=== PATIENT | female | born 1995 | race Caucasian/White ===

== ENCOUNTER 2021-03-20 13:13 | Inpatient (IN) | payer MEDICAID, OTHER ==
[2021-03-20] MEDS ORDERED: SODIUM CHLORIDE 0.9% 1,000 ML IV STA (15:04)
[2021-03-20 15:26] LABS: Basophils # (A) 0.1 k/uL (0-0.2); Basophils % (A) 1 %; Eosinophils # (A) 0.1 k/uL (0-0.7); Eosinophils % (A) 1 %; HCT 29.7 % (34.0-46.0); Hyperchromasia Slight; Lymphocytes # (A) 2.3 k/uL (1.0-4.8); Lymphocytes % (A) 26 %; MCV 91.8 fL (80.0-100.0); Mean Platelet Volume 7.8; Monocytes # (A) 0.4 k/uL (0-1.0); Monocytes % (A) 5 %; Neutrophils # (A) 5.7 k/uL (1.3-7.7); Neutrophils % (A) 66 %; Platelet Count 327 k/uL (150-450); RBC 3.23 m/uL (3.80-5.40); RDW 12.7 % (11.5-15.5); WBC 8.6 k/uL (3.8-10.6)
[2021-03-20 15:39] LABS: ALT 48 U/L (4-34); AST 104 U/L (14-36); African American GFR (CKD) >90 (>60 ml/min/1.73 sqM); Albumin 3.7 g/dL (3.5-5.0); Alkaline Phosphatase 164 U/L (38-126); Anion Gap 14 mmol/L; Blood Urea Nitrogen 16 mg/dL (7-17); Calcium 8.4 mg/dL (8.4-10.2); Carbon Dioxide 18 mmol/L (22-30); Chloride 102 mmol/L (98-107); Glucose 115 mg/dL (74-99); Magnesium 1.3 mg/dL (1.6-2.3); Non-African American GFR(CKD) >90 (>60 ml/min/1.73 sqM); Potassium 4.1 mmol/L (3.5-5.1); Sodium 134 mmol/L (137-145); Total Bilirubin 0.7 mg/dL (0.2-1.3); Total Protein 7.5 g/dL (6.3-8.2)
[2021-03-20] MEDS ORDERED: MORPHINE SULFATE 4 MG/ML SYRINGE IV STA (15:41)
[2021-03-20] MEDS ORDERED: ONDANSETRON 4 MG/2 ML VIAL IVP STA (15:41)
--- NOTE | 2021-03-20 15:41 | ED ---
General Adult HPI - General Chief complaint: Abdominal Pain Stated complaint: Abdominal Pain Time Seen by Provider: 03/20/21 14:56 Source: patient Mode of arrival: ambulatory Limitations: no limitations - History of Present Illness Initial comments: Dictation was produced using [employer] dictation software. please excuse any grammatical, word or spelling errors. Chief Complaint: 25 year old female presents with left-sided flank pain History of Present Illness: Patient is a 25-year-old female she states that she has left-sided flank pain. Symptoms started yesterday. She is accompanied by her who was sitting at the bedside. She states that she has radiating pain that starts in the left flank and radiates down to the left groin. States that it colicky in nature. States is severe but started to get a little bit better. Patient denies she states she has intrauterine device. She does not have a history of kidney stones. She has not looked at her urine in the last 48 hours. She does not know if there is any changes in color. Denies any fever. No dysuria. The ROS documented in this emergency department record has been reviewed and confirmed by me. Those systems with pertinent positive or negative responses have been documented in the HPI. All other systems are other negative and/or noncontributory. PHYSICAL EXAM: General Impression: Alert and oriented x3, not in acute distress HEENT: Normocephalic atraumatic, extra-ocular movements intact, pupils equal and reactive to light bilaterally, mucous membranes moist. Cardiovascular: Heart regular rate and rhythm Chest: Able to complete full sentences, no retractions, no tachypnea Abdomen: abdomen soft, non-tender, non-distended, no organomegaly Musculoskeletal: Pulses present and equal in all extremities, no peripheral edema Motor: no focal deficits noted Neurological: CN II-XII grossly intact, no focal motor or sensory deficits noted Skin: Intact with no visualized rashes Psych: Normal affect and mood ED course: 25-year-old feel presents to the emergency department for 1-2 days of left-sided flank pain. Presentation suspicious for nephrolithiasis. Vital signs upon arrival shows findings within acceptable limits. Evaluation obtained. Hemoglobin is 10.9. This is a 2-1/2 g drop since 2016. Laboratory evaluation obtained. There is mild acidosis with a bicarb of 18. Left acidosis 2.5. Elevated liver enzymes. Beta Quant is negative. The scan of the abdomen and pelvis without contrast shows pancreatitis. Patient treated with fluids and analgesics. According to the lab result her lipase is unable to be reported due to grossly lipemic specimen. A urine sample and repeat lipase sample. Case discussed with Jodie Michelle is willing to accept patients care. Patient reevaluated at bedside at 4:50 PM 5 to be stable medical condition. - Related Data Home Medications Medication Instructions Recorded Confirmed Cetirizine HCl [Zyrtec] 10 mg PO DAILY 03/20/21 03/20/21 Lisdexamfetamine Dimesylate 50 mg PO DAILY 03/20/21 03/20/21 [Vyvanse] Allergies Allergy/AdvReac Type Severity Reaction Status Date / Time No Known Allergies Allergy Verified 03/20/21 15:50 Review of Systems ROS Statement: Those systems with pertinent positive or pertinent negative responses have been documented in the HPI. ROS Other: All systems not noted in ROS Statement are negative. Past Medical History Additional Past Medical History / Comment(s): bulemia History of Any Multi-Drug Resistant Organisms: None Reported Past Surgical History: Tonsillectomy Past Psychological History: Anxiety, Depression Smoking Status: Never smoker Past Alcohol Use History: Occasional Past Drug Use History: Marijuana General Exam Limitations: no limitations Course Vital Signs 03/20/21 13:47 Temperature 97.5 F L Pulse Rate 80 Respiratory 22 Rate Blood Pressure 124/87 O2 Sat by Pulse 99 Oximetry Medical Decision Making - Lab Data Result diagrams: 03/20/21 15:04 03/20/21 15:04 Lab Results 03/20/21 03/20/21 03/20/21 Range/Units 15:04 15:04 15:04 WBC 8.6 (3.8-10.6) k/uL RBC 3.23 L (3.80-5.40) m/uL Hgb 10.9 L (11.4-16.0) gm/dL Hct 29.7 L (34.0-46.0) % MCV 91.8 (80.0-100.0) fL MCH 35.6 H (25.0-35.0) pg MCHC 38.2 H (31.0-37.0) g/dL RDW 12.7 (11.5-15.5) % Plt Count 327 (150-450) k/uL MPV 7.8 Neutrophils % 66 % Lymphocytes % 26 % Monocytes % 5 % Eosinophils % 1 % Basophils % 1 % Neutrophils # 5.7 (1.3-7.7) k/uL Lymphocytes # 2.3 (1.0-4.8) k/uL Monocytes # 0.4 (0-1.0) k/uL Eosinophils # 0.1 (0-0.7) k/uL Basophils # 0.1 (0-0.2) k/uL Hyperchromasia Slight Sodium 134 L (137-145) mmol/L Potassium 4.1 (3.5-5.1) mmol/L Chloride 102 (98-107) mmol/L Carbon Dioxide 18 L (22-30) mmol/L Anion Gap 14 mmol/L BUN 16 (7-17) mg/dL Creatinine 0.53 (0.52-1.04) mg/dL Est GFR (CKD-EPI)AfAm >90 (>60 ml/min/1.73 sqM) Est GFR (CKD-EPI)NonAf >90 (>60 ml/min/1.73 sqM) Glucose 115 H (74-99) mg/dL Plasma Lactic Acid Will 2.5 H* (0.7-2.0) mmol/L Calcium 8.4 (8.4-10.2) mg/dL Magnesium 1.3 L (1.6-2.3) mg/dL Total Bilirubin 0.7 (0.2-1.3) mg/dL AST 104 H (14-36) U/L ALT 48 H (4-34) U/L Alkaline Phosphatase 164 H (38-126) U/L Total Protein 7.5 (6.3-8.2) g/dL Albumin 3.7 (3.5-5.0) g/dL Lipase (23-300) U/L HCG, Quant <2.4 mIU/mL Disposition Clinical Impression: Pancreatitis Disposition: ADMITTED IP TO THIS HOSP Condition: Fair Referrals: Ernesto Morgan MD [Primary Care Provider] - 1-2 days
[2021-03-20 15:42] LABS: HGB 10.9 gm/dL (11.4-16.0); MCH 35.6 pg (25.0-35.0); MCHC 38.2 g/dL (31.0-37.0)
[2021-03-20 16:20] LABS: HCG,Quantitative Serum <2.4 mIU/mL
--- NOTE | 2021-03-20 16:35 | CT ---
EXAMINATION TYPE: CT abdomen pelvis wo con DATE OF EXAM: 03/20/2021 COMPARISON: None HISTORY: Suspected kidney stone, left side abdominal pain CT DLP: 339.9 mGycm Automated exposure control for dose reduction was used. TECHNIQUE: Helical acquisition of images from the lung bases through the pelvis. FINDINGS: Lack of intravenous contrast compromises sensitivity. LUNG BASES: No significant abnormality is appreciated. AORTA: No significant abnormality is appreciated. LIVER/GB: Liver shows low attenuation likely due to hepatic steatosis.. PANCREAS: Pancreas is poorly defined, there is peripancreatic inflammatory change present, fluid pres ent along the left paracolic gutter, lateral conal fascia, Gerota's fascia. SPLEEN: No significant abnormality is seen. ADRENALS: No significant abnormality is seen. KIDNEYS: No significant abnormality is seen. REPRODUCTIVE ORGANS: Intrauterine contraceptive device in place. URINARY BLADDER: No significant abnormality is seen. BOWEL: Luminal high attenuation within the colon likely related to radiodense medication.. FREE AIR: No Free Air is visible. ASCITES: None visible. PELVIC ADENOPATHY: None visualized. RETROPERITONEAL ADENOPATHY: No Retroperitoneal Adenopathy visible. OSSEOUS STRUCTURES: No significant abnormality is seen. IMPRESSION: CORRELATE FOR PANCREATITIS, noncontrast exam
[2021-03-20] MEDS ORDERED: NALOXONE 0.4 MG/ML 1 ML VIAL IV PRN (16:50)
--- NOTE | 2021-03-20 18:05 | US ---
EXAMINATION TYPE: US abdomen limited DATE OF EXAM: 03/20/2021 COMPARISON: Same day CT CLINICAL HISTORY: RUQ. Pain x 1 day EXAM MEASUREMENTS: Liver Length: 18.0 cm Gallbladder Wall: 0.2 cm CBD: 0.4 cm Right Kidney: 11.2 x 4.9 x 4.9 cm Pancreas: Body wnl, head and tail obscured by overlying bowel gas Liver: Upper limits of normal for size, heterogeneous, difficult to penetrate Gallbladder: wnl Evidence for sonographic Gallegos's sign: No CBD: wnl Right Kidney: wnl, lower pole gassed out IMPRESSION: No gallstones or dilated ducts.
[2021-03-20 18:26] LABS: Appearance,Urine Clear (Clear); Bilirubin,Urine Negative (Negative); Blood,Urine Negative (Negative); Color,Urine Light Yellow; Glucose,Urine (UA) Negative (Negative); Ketones,Urine Negative (Negative); Leukocyte Esterase,Urine Negative (Negative); Nitrite,Urine Negative (Negative); PH, Urine 5.5 (5.0-8.0); Protein,Urine Negative (Negative); Specific Gravity,Urine 1.016 (1.001-1.035); Urobilinogen,Urine <2.0 mg/dL (<2.0)
[2021-03-20] MEDS: SODIUM CHLORIDE 0.9% 1,000 ML IV SCH (20:39)
[2021-03-20] MEDS: ONDANSETRON 4 MG/2 ML VIAL IVP PRN (20:49)
[2021-03-20] MEDS: MORPHINE SULFATE 4 MG/ML SYRINGE IV PRN (20:49)
[2021-03-21] MEDS: MORPHINE SULFATE 4 MG/ML SYRINGE IV PRN ×6 (00:56→23:45)
[2021-03-21] MEDS: SODIUM CHLORIDE 0.9% 1,000 ML IV SCH ×2 (03:14→19:13)
[2021-03-21] MEDS: ONDANSETRON 4 MG/2 ML VIAL IVP PRN (06:15)
--- NOTE | 2021-03-21 12:26 | P.GSCN ---
History of Present Illness Consult date: 03/21/21 History of present illness: This is a 25 old female presented with a chief complaint of abdominal pain. She had been out drinking the day previously heavily. She states that she has a glass a wine every day or every other day usually. She states she's usually not a heavy drinker though. She's never had this before in the past. She is found have pancreatitis on computed tomography scan. No signs of gallstones on ultrasound or computed tomography scan. Today she states she's feeling somewhat better though she is still having some abdominal pain. Past Medical History Additional Past Medical History / Comment(s): bulemia History of Any Multi-Drug Resistant Organisms: None Reported Past Surgical History: Tonsillectomy Past Psychological History: Anxiety, Depression Smoking Status: Never smoker Past Alcohol Use History: Occasional Past Drug Use History: Marijuana Medications and Allergies Home Medications Medication Instructions Recorded Confirmed Type Cetirizine HCl [Zyrtec] 10 mg PO DAILY 03/20/21 03/20/21 History Lisdexamfetamine Dimesylate 50 mg PO DAILY 03/20/21 03/20/21 History [Vyvanse] Allergies Allergy/AdvReac Type Severity Reaction Status Date / Time No Known Allergies Allergy Verified 03/20/21 15:50 Surgical - Exam Osteopathic Statement: *. No significant issues noted on an osteopathic structural exam other than those noted in the History and Physical/Consult. Vital Signs Temp Pulse Resp BP Pulse Ox 97.5 F L 80 22 124/87 99 03/20/21 13:47 03/20/21 13:47 03/20/21 13:47 03/20/21 13:47 03/20/21 13:47 - General well developed, well nourished, no distress - Neck trachea midline - Cardiovascular Rhythm: regular - Abdomen Soft nondistended tender to palpation midepigastric no rebound no rigidity no guarding - Psychiatric oriented to time, oriented to person, oriented to place Results - Labs 03/20/21 15:04 03/20/21 15:04 Abnormal Lab Results - Last 24 Hours (Table) 03/20/21 03/20/21 03/20/21 Range/Units 15:04 15:04 15:04 RBC 3.23 L (3.80-5.40) m/uL Hgb 10.9 L (11.4-16.0) gm/dL Hct 29.7 L (34.0-46.0) % MCH 35.6 H (25.0-35.0) pg MCHC 38.2 H (31.0-37.0) g/dL Sodium 134 L (137-145) mmol/L Carbon Dioxide 18 L (22-30) mmol/L Glucose 115 H (74-99) mg/dL Plasma Lactic Acid Will 2.5 H* (0.7-2.0) mmol/L Magnesium 1.3 L (1.6-2.3) mg/dL AST 104 H (14-36) U/L ALT 48 H (4-34) U/L Alkaline Phosphatase 164 H (38-126) U/L Diabetes panel 03/20/21 Range/Units 15:04 Sodium 134 L (137-145) mmol/L Potassium 4.1 (3.5-5.1) mmol/L Chloride 102 (98-107) mmol/L Carbon Dioxide 18 L (22-30) mmol/L BUN 16 (7-17) mg/dL Creatinine 0.53 (0.52-1.04) mg/dL Glucose 115 H (74-99) mg/dL Calcium 8.4 (8.4-10.2) mg/dL AST 104 H (14-36) U/L ALT 48 H (4-34) U/L Alkaline Phosphatase 164 H (38-126) U/L Total Protein 7.5 (6.3-8.2) g/dL Albumin 3.7 (3.5-5.0) g/dL Calcium panel 03/20/21 Range/Units 15:04 Calcium 8.4 (8.4-10.2) mg/dL Albumin 3.7 (3.5-5.0) g/dL Pituitary panel 03/20/21 Range/Units 15:04 Sodium 134 L (137-145) mmol/L Potassium 4.1 (3.5-5.1) mmol/L Chloride 102 (98-107) mmol/L Carbon Dioxide 18 L (22-30) mmol/L BUN 16 (7-17) mg/dL Creatinine 0.53 (0.52-1.04) mg/dL Glucose 115 H (74-99) mg/dL Calcium 8.4 (8.4-10.2) mg/dL Adrenal panel 03/20/21 Range/Units 15:04 Sodium 134 L (137-145) mmol/L Potassium 4.1 (3.5-5.1) mmol/L Chloride 102 (98-107) mmol/L Carbon Dioxide 18 L (22-30) mmol/L BUN 16 (7-17) mg/dL Creatinine 0.53 (0.52-1.04) mg/dL Glucose 115 H (74-99) mg/dL Calcium 8.4 (8.4-10.2) mg/dL Total Bilirubin 0.7 (0.2-1.3) mg/dL AST 104 H (14-36) U/L ALT 48 H (4-34) U/L Alkaline Phosphatase 164 H (38-126) U/L Total Protein 7.5 (6.3-8.2) g/dL Albumin 3.7 (3.5-5.0) g/dL Assessment and Plan Assessment: Alcohol-induced pancreatitis Plan: Patient doesn't have any gallstones or signs of gallstone pancreatitis. This likely secondary to alcohol use the previous day. No plans for any acute surgical intervention fluid resuscitation and when she is feeling better advance diet as tolerated
[2021-03-22] MEDS: SODIUM CHLORIDE 0.9% 1,000 ML IV SCH ×3 (00:29→15:59)
[2021-03-22] MEDS: ACETAMINOPHEN TAB 325 MG TAB PO PRN ×2 (01:49→19:49)
[2021-03-22] MEDS: MORPHINE SULFATE 4 MG/ML SYRINGE IV PRN ×4 (03:51→15:59)
--- NOTE | 2021-03-22 07:54 | P.HPIM ---
History of Present Illness H&P Date: 03/21/21 Chief Complaint: Abdominal Pain 25 old female, with history of bulimia and seasonal ALLERGIES, presented with a chief complaint of abdominal pain which started 1-2 days prior to coming to ED. She had been out drinking the day previously heavily. She states that she has a glass a wine every day or every other day usually. She states she's usually not a heavy drinker though. She's never had this before in the past. Blood work completed in ED reveals WBC 8.6, hemoglobin 10.9, platelet count 327, sodium 134, potassium 4.1, BUN/creatinine of 16/0.53; lactic acid of 2.5, AST/ALT elevated at 104/48; lipase could not be done due to specimen being grossly lipemic. CT of abdomen pelvis is suspicious for acute pancreatitis; abdominal ultrasound is negative for gallstones or dilated bile duct Review of Systems REVIEW OF SYSTEMS: CONSTITUTIONAL: No fever, no malaise, no fatigue. HEENT: No recent visual problems or hearing problems. Denied any sore throat. CARDIOVASCULAR: No chest pain, orthopnea, PND, no palpitations, no syncope. PULMONARY: No shortness of breath, no cough, no hemoptysis. GASTROINTESTINAL: abdominal pain. NEUROLOGICAL: No headaches, no weakness, no numbness. HEMATOLOGICAL: Denies any bleeding or petechiae. GENITOURINARY: Denies any burning micturition, frequency, or urgency. MUSCULOSKELETAL/RHEUMATOLOGICAL: Denies any joint pain, swelling, or any muscle pain. ENDOCRINE: Denies any polyuria or polydipsia. The rest of the 14-point review of systems is negative. Past Medical History Additional Past Medical History / Comment(s): bulemia History of Any Multi-Drug Resistant Organisms: None Reported Past Surgical History: Tonsillectomy Past Psychological History: Anxiety, Depression Smoking Status: Never smoker Past Alcohol Use History: Occasional Past Drug Use History: Marijuana Medications and Allergies Home Medications Medication Instructions Recorded Confirmed Type Cetirizine HCl [Zyrtec] 10 mg PO DAILY 03/20/21 03/20/21 History Lisdexamfetamine Dimesylate 50 mg PO DAILY 03/20/21 03/20/21 History [Vyvanse] Allergies Allergy/AdvReac Type Severity Reaction Status Date / Time No Known Allergies Allergy Verified 03/20/21 15:50 Physical Exam Vitals: Vital Signs Temp Pulse Pulse Resp BP BP Pulse Ox 03/21/21 07:00 99.2 F 105 H 18 94/60 99 03/21/21 01:53 99.0 F 107 H 16 106/67 03/20/21 20:38 98.7 F 96 18 124/86 100 03/20/21 13:47 97.5 F L 80 22 124/87 99 Intake and Output 03/20/21 03/21/21 03/21/21 22:59 06:59 14:59 Other: Voiding Method Toilet Toilet Toilet # Voids 0 2 Weight 54.431 kg PHYSICAL EXAMINATION: GENERAL: The patient is alert and oriented x3, not in any acute distress. Well developed, well nourished. HEENT: Pupils are round and equally reacting to light. EOMI. No scleral icterus. No conjunctival pallor. Normocephalic, atraumatic. No pharyngeal erythema. No thyromegaly. CARDIOVASCULAR: S1 and S2 present. No murmurs, rubs, or gallops. PULMONARY: Chest is clear to auscultation, no wheezing or crackles. ABDOMEN: Soft, diffuse tenderness is more so in epigastric area without any g uarding or rigidity. Bowel sounds are positive MUSCULOSKELETAL: No joint swelling or deformity. EXTREMITIES: No cyanosis, clubbing, or pedal edema. NEUROLOGICAL: Gross neurological examination did not reveal any focal deficits. SKIN: No rashes. Results CBC & Chem 7: 03/20/21 15:04 03/20/21 15:04 Labs: Abnormal Lab Results - Last 24 Hours (Table) 03/20/21 03/20/21 03/20/21 Range/Units 15:04 15:04 15:04 RBC 3.23 L (3.80-5.40) m/uL Hgb 10.9 L (11.4-16.0) gm/dL Hct 29.7 L (34.0-46.0) % MCH 35.6 H (25.0-35.0) pg MCHC 38.2 H (31.0-37.0) g/dL Sodium 134 L (137-145) mmol/L Carbon Dioxide 18 L (22-30) mmol/L Glucose 115 H (74-99) mg/dL Plasma Lactic Acid Will 2.5 H* (0.7-2.0) mmol/L Magnesium 1.3 L (1.6-2.3) mg/dL AST 104 H (14-36) U/L ALT 48 H (4-34) U/L Alkaline Phosphatase 164 H (38-126) U/L Assessment and Plan Assessment: 1. Acute alcoholic pancreatitis - IV fluids in form of normal saline at a rate of 1 25 mL an hour; keep patient nothing by mouth till evaluated by general surgery - Pain controlled with morphine 4 mg IV every 4 hours when necessary; Zofran 4 mg IV every 6 hours when necessary for nausea and vomiting 2. Lactic acidosis; possibly related to EtOH use versus acute pancreatitis; we will monitor lipase closely and continue with IV fluid hydration 3. Transaminitis; possibly related to EtOH use; we will monitor liver enzymes closely with further recommendations pending results 4. History of bulimia; resume home dose of Vyvanse 50 mg daily once clinically improved 5. Seasonal ALLERGIES; patient takes Zyrtec 10 mg daily at home DVT prophylaxis; SCDs CODE STATUS; full code
[2021-03-22 09:26] LABS: HCT 31.2 % (37.2-46.3); HGB 11.1 g/dL (12.0-15.0); MCH 34.8 pg (27.0-32.0); MCHC 35.6 g/dL (32.0-37.0); MCV 97.8 fL (80.0-97.0); Mean Platelet Volume 11.4 fL (9.5-12.2); Platelet Count 222 X 10*3/uL (140-440); RBC 3.19 X 10*6/uL (4.10-5.20); RDW 12.6 % (11.5-14.5); WBC 15.82 X 10*3/uL (4.50-10.00)
[2021-03-22 10:17] LABS: Basophils # (A) 0.11 X 10*3/uL (0.00-0.10); Basophils % (A) 0.7 %; Eosinophils # (A) 0.24 X 10*3/uL (0.04-0.35); Eosinophils % (A) 1.5 %; Lymphocytes # (A) 1.51 X 10*3/uL (0.90-5.00); Lymphocytes % (A) 9.5 %; Monocytes # (A) 0.58 X 10*3/uL (0.20-1.00); Monocytes % (A) 3.7 %; Neutrophils # (A) 13.26 X 10*3/uL (1.80-7.70); Neutrophils % (A) 83.8 %
[2021-03-22 10:38] LABS: African American GFR (CKD) 166.6 (60.0-200.0); Blood Urea Nitrogen 2.8 mg/dL (9.0-27.0); Non-African American GFR(CKD) 143.7 (60.0-200.0)
[2021-03-22 11:23] LABS: Albumin 2.7 g/dL (3.8-4.9); Albumin/Globulin Ratio 1.44 (1.60-3.17); Anion Gap 11.4 mmol/L (10.00-18.00); Bilirubin, Conjugated 0.21 mg/dL (0.20-0.40); Bilirubin,Unconjugated 0.22 mg/dL (0.20-1.00); Calcium 5.7 mg/dL (8.7-10.3); Carbon Dioxide 18.6 mmol/L (20.0-27.5); Globulin 1.9 g/dL (1.6-3.3); Potassium 3.6 mmol/L (3.5-5.5); Total Bilirubin 0.4 mg/dL (0.30-1.20); Total Protein 4.6 g/dL (6.2-8.2)
[2021-03-22] MEDS: ONDANSETRON 4 MG/2 ML VIAL IVP PRN ×2 (12:02→17:56)
[2021-03-22 14:34] LABS: Ionized Calcium 3.8 mg/dL (4.5-5.3)
[2021-03-22 14:46] LABS: C Reactive Protein 7.8 mg/dL (<1.0); Magnesium 1.4 mg/dL (1.6-2.3)
[2021-03-22 15:38] LABS: Appearance,Urine Clear (Clear); Bilirubin,Urine Negative (Negative); Blood,Urine Negative (Negative); Color,Urine Yellow; Glucose,Urine (UA) Negative (Negative); Ketones,Urine Trace (Negative); Leukocyte Esterase,Urine Negative (Negative); Nitrite,Urine Negative (Negative); Protein,Urine Trace (Negative); Specific Gravity,Urine 1.007 (1.001-1.035); Urobilinogen,Urine <2.0 mg/dL (<2.0)
--- NOTE | 2021-03-22 15:38 | XR ---
EXAMINATION TYPE: XR chest 2V DATE OF EXAM: 03/22/2021 COMPARISON: NONE HISTORY: Pancreatitis. Leukocytosis. TECHNIQUE: 2 views FINDINGS: There is some infiltrate in the left lower lobe. There is bilateral blunting of the costoph renic angles. There is no obvious heart failure. Heart size is probably normal. IMPRESSION: There is bilateral pleural effusions with basilar pulmonary infiltrates. No heart failure seen.
[2021-03-22] MEDS: PIPERACILLIN-TAZOBACTAM 3.375 GM in SODIUM CHLORIDE 0.9% 100 ML IVPB SCH ×2 (15:59→23:19)
--- NOTE | 2021-03-22 20:43 | P.PN ---
Subjective Progress Note Date: 03/22/21 Principal diagnosis: Acute appendicitis Leukocytosis/lactic acidosis Hypocalcemia/hypomagnesemia Bibasilar pneumonia/bilateral pleural effusion 25 old female, with history of bulimia and seasonal ALLERGIES, presented with a chief complaint of abdominal pain which started 1-2 days prior to coming to ED. She had been out drinking the day previously heavily. She states that she has a glass a wine every day or every other day usually. She states she's usually not a heavy drinker though. She's never had this before in the past. Blood work completed in ED reveals WBC 8.6, hemoglobin 10.9, platelet count 327, sodium 134, potassium 4.1, BUN/creatinine of 16/0.53; lactic acid of 2.5, AST/ALT elevated at 104/48; lipase could not be done due to specimen being grossly lipemic. CT of abdomen pelvis is suspicious for acute pancreatitis; abdominal ultrasound is negative for gallstones or dilated bile duct 03/22/2021 Patient is seen and evaluated in room at bedside; report some improvement in abdominal pain; currently on clear liquid diet Vital signs temperature 98.2 pulse 114 respirations 16 blood pressure of 96/53 Lab review shows a persistently elevated white blood count of 15.8 to, sodium 1:30, BUN/creatinine of 2.8/0.4, lipase elevated at 640, CRP of 7.8, AST/ALT slowly trending down, ionized calcium level of 3.8 Due to persistent leukocytosis sepsis workup was initiated and reveals chest x- ray positive for bibasilar pneumonia and pleural effusion We will start patient on IV Rocephin and azithromycin with plans to de-escalate antibiotic therapy fairly quickly pending clinical response; ID is consulted Objective - Vital Signs Vital signs: Vital Signs Temp 99.2 F 03/22/21 19:42 Pulse 114 H 03/22/21 19:44 Resp 16 03/22/21 19:42 BP 96/53 03/22/21 19:42 Pulse Ox 96 03/22/21 19:42 Intake & Output 03/22/21 03/22/21 03/23/21 06:59 18:59 06:59 Intake Total 500 Balance 500 Intake: Oral 500 Other: Voiding Method Toilet Toilet # Voids 1 2 - Exam PHYSICAL EXAMINATION: GENERAL: The patient is alert and oriented x3, not in any acute distress. Well developed, well nourished. HEENT: Pupils are round and equally reacting to light. EOMI. No scleral icterus. No conjunctival pallor. Normocephalic, atraumatic. No pharyngeal erythema. No thyromegaly. CARDIOVASCULAR: S1 and S2 present. No murmurs, rubs, or gallops. PULMONARY: Chest is clear to auscultation, no wheezing or crackles. ABDOMEN: Soft, nontender, nondistended, normoactive bowel sounds. No palpable organomegaly. MUSCULOSKELETAL: No joint swelling or deformity. EXTREMITIES: No cyanosis, clubbing, or pedal edema. NEUROLOGICAL: Gross neurological examination did not reveal any focal deficits. SKIN: No rashes. - Labs CBC & Chem 7: 03/22/21 05:50 03/22/21 05:50 Labs: Abnormal Lab Results - Last 24 Hours (Table) 03/22/21 03/22/21 03/22/21 Range/Units 05:50 05:50 14:13 WBC 15.82 H (4.50-10.00) X 10*3/uL RBC 3.19 L (4.10-5.20) X 10*6/uL Hgb 11.1 L (12.0-15.0) g/dL Hct 31.2 L (37.2-46.3) % MCV 97.8 H (80.0-97.0) fL MCH 34.8 H (27.0-32.0) pg Immature Gran # 0.12 H (0.00-0.04) X 10*3/uL Neutrophils # 13.26 H (1.80-7.70) X 10*3/uL Basophils # 0.11 H (0.00-0.10) X 10*3/uL Sodium 130 L (135-145) mmol/L Carbon Dioxide 18.6 L (20.0-27.5) mmol/L BUN 2.8 L (9.0-27.0) mg/dL Creatinine 0.4 L (0.6-1.5) mg/dL BUN/Creatinine Ratio 7.00 L (12.00-20.00) Ratio Calcium 5.7 L* (8.7-10.3) mg/dL Ionized Calcium Danelle 3.8 L (4.5-5.3) mg/dL Magnesium 1.4 L (1.6-2.3) mg/dL AST 51 H (13-35) U/L C-Reactive Protein 7.8 H (<1.0) mg/dL Total Protein 4.6 L (6.2-8.2) g/dL Albumin 2.7 L (3.8-4.9) g/dL Albumin/Globulin Ratio 1.44 L (1.60-3.17) g/dL Lipase 640 H (14-63) U/L Urine Protein (Negative) Urine Ketones (Negative) 03/22/21 Range/Units 15:30 WBC (4.50-10.00) X 10*3/uL RBC (4.10-5.20) X 10*6/uL Hgb (12.0-15.0) g/dL Hct (37.2-46.3) % MCV (80.0-97.0) fL MCH (27.0-32.0) pg Immature Gran # (0.00-0.04) X 10*3/uL Neutrophils # (1.80-7.70) X 10*3/uL Basophils # (0.00-0.10) X 10*3/uL Sodium (135-145) mmol/L Carbon Dioxide (20.0-27.5) mmol/L BUN (9.0-27.0) mg/dL Creatinine (0.6-1.5) mg/dL BUN/Creatinine Ratio (12.00-20.00) Ratio Calcium (8.7-10.3) mg/dL Ionized Calcium Danelle (4.5-5.3) mg/dL Magnesium (1.6-2.3) mg/dL AST (13-35) U/L C-Reactive Protein (<1.0) mg/dL Total Protein (6.2-8.2) g/dL Albumin (3.8-4.9) g/dL Albumin/Globulin Ratio (1.60-3.17) g/dL Lipase (14-63) U/L Urine Protein Trace H (Negative) Urine Ketones Trace H (Negative) Assessment and Plan Assessment: 1. Acute alcoholic pancreatitis - IV fluids in form of normal saline at a rate of 1 25 mL an hour; keep patient nothing by mouth till evaluated by general surgery - Pain controlled with morphine 4 mg IV every 4 hours when necessary; Zofran 4 mg IV every 6 hours when necessary for nausea and vomiting 2. Lactic acidosis; possibly related to EtOH use versus acute pancreatitis; we will monitor lipase closely and continue with IV fluid hydration 3. Transaminitis; possibly related to EtOH use; we will monitor liver enzymes closely with further recommendations pending results 4. History of bulimia; resume home dose of Vyvanse 50 mg daily once clinically improved 5. Seasonal ALLERGIES; patient takes Zyrtec 10 mg daily at home DVT prophylaxis; SCDs CODE STATUS; full code
[2021-03-22] MEDS ORDERED: CALCIUM GLUCONATE 2 GM in SODIUM CHLORIDE 0.9% 100 ML IVPB ONE (20:45)
[2021-03-22 21:04] LABS: Basophils % (A) 0 %; Eosinophils # (A) 0.3 k/uL (0-0.7); Eosinophils % (A) 2 %; HCT 26.1 % (34.0-46.0); Lymphocytes # (A) 1.7 k/uL (1.0-4.8); Lymphocytes % (A) 13 %; MCH 34.3 pg (25.0-35.0); MCHC 36.1 g/dL (31.0-37.0); MCV 94.9 fL (80.0-100.0); Mean Platelet Volume 9.2; Monocytes # (A) 0.4 k/uL (0-1.0); Monocytes % (A) 3 %; Neutrophils # (A) 10.1 k/uL (1.3-7.7); Neutrophils % (A) 81 %; Platelet Count 178 k/uL (150-450); RBC 2.75 m/uL (3.80-5.40); RDW 12.6 % (11.5-15.5); WBC 12.5 k/uL (3.8-10.6)
[2021-03-22] MEDS: AZITHROMYCIN 250 MG TAB PO SCH (21:04)
[2021-03-22 21:08] LABS: HGB 9.4 gm/dL (11.4-16.0)
[2021-03-23] MEDS: MORPHINE SULFATE 4 MG/ML SYRINGE IV PRN ×4 (01:46→21:11)
[2021-03-23] MEDS: SODIUM CHLORIDE 0.9% 1,000 ML IV SCH ×3 (01:47→22:21)
[2021-03-23 05:18] LABS: Basophils % (A) 0 %; Eosinophils # (A) 0.2 k/uL (0-0.7); Eosinophils % (A) 2 %; HCT 24.5 % (34.0-46.0); HGB 8.7 gm/dL (11.4-16.0); Lymphocytes # (A) 1.2 k/uL (1.0-4.8); Lymphocytes % (A) 11 %; MCH 34.2 pg (25.0-35.0); MCHC 35.4 g/dL (31.0-37.0); MCV 96.5 fL (80.0-100.0); Mean Platelet Volume 8.7; Monocytes # (A) 0.4 k/uL (0-1.0); Monocytes % (A) 4 %; Neutrophils # (A) 8.7 k/uL (1.3-7.7); Neutrophils % (A) 83 %; Platelet Count 174 k/uL (150-450); RBC 2.54 m/uL (3.80-5.40); RDW 12.8 % (11.5-15.5); WBC 10.6 k/uL (3.8-10.6)
[2021-03-23 06:10] LABS: African American GFR (CKD) >90 (>60 ml/min/1.73 sqM); Anion Gap 5 mmol/L; Blood Urea Nitrogen <2 mg/dL (7-17); Calcium 7.3 mg/dL (8.4-10.2); Carbon Dioxide 23 mmol/L (22-30); Chloride 104 mmol/L (98-107); Glucose 97 mg/dL (74-99); Magnesium 1.6 mg/dL (1.6-2.3); Non-African American GFR(CKD) >90 (>60 ml/min/1.73 sqM); Potassium 3.4 mmol/L (3.5-5.1); Sodium 132 mmol/L (137-145)
[2021-03-23 06:45] LABS: C Reactive Protein 14.3 mg/dL (<1.0)
--- NOTE | 2021-03-23 08:20 | P.PN ---
Subjective Principal diagnosis: Pancreatitis The patient is here essentially because of significant alcohol pancreatitis. The patient still feels slight pain 45 out of 10. Tolerating liquid diet but the patient states no improved appetite pain is still nominal Objective - Vital Signs Vital signs: Vital Signs Temp 98.5 F 03/23/21 00:03 Pulse 112 H 03/23/21 00:04 Resp 18 03/23/21 00:03 BP 109/71 03/23/21 00:03 Pulse Ox 95 03/23/21 00:03 Intake & Output 03/22/21 03/23/21 03/23/21 18:59 06:59 18:59 Intake Total 1000 Balance 1000 Intake: Oral 1000 Other: Voiding Method Toilet # Voids 2 1 - Constitutional General appearance: Present: average body habitus - EENT Eyes: Absent: abnormal pupil - Neck Neck: Absent: lymphadenopathy - Respiratory Respiratory: bilateral: CTA - Cardiovascular Rhythm: regular Heart sounds: normal: S1, S2 Abnormal Heart Sounds: Absent: S3 Gallop - Gastrointestinal General gastrointestinal: Present: decreased bowel sounds, distended - Labs CBC & Chem 7: 03/23/21 04:33 03/23/21 04:33 Labs: Abnormal Lab Results - Last 24 Hours (Table) 03/22/21 03/22/21 03/22/21 Range/Units 05:50 05:50 14:13 WBC 15.82 H (4.50-10.00) X 10*3/uL RBC 3.19 L (4.10-5.20) X 10*6/uL Hgb 11.1 L (12.0-15.0) g/dL Hct 31.2 L (37.2-46.3) % MCV 97.8 H (80.0-97.0) fL MCH 34.8 H (27.0-32.0) pg Immature Gran # 0.12 H (0.00-0.04) X 10*3/uL Neutrophils # 13.26 H (1.80-7.70) X 10*3/uL Basophils # 0.11 H (0.00-0.10) X 10*3/uL Sodium 130 L (135-145) mmol/L Potassium (3.5-5.1) mmol/L Carbon Dioxide 18.6 L (20.0-27.5) mmol/L BUN 2.8 L (9.0-27.0) mg/dL Creatinine 0.4 L (0.6-1.5) mg/dL BUN/Creatinine Ratio 7.00 L (12.00-20.00) Ratio Calcium 5.7 L* (8.7-10.3) mg/dL Ionized Calcium Danelle 3.8 L (4.5-5.3) mg/dL Magnesium 1.4 L (1.6-2.3) mg/dL AST 51 H (13-35) U/L C-Reactive Protein 7.8 H (<1.0) mg/dL Total Protein 4.6 L (6.2-8.2) g/dL Albumin 2.7 L (3.8-4.9) g/dL Albumin/Globulin Ratio 1.44 L (1.60-3.17) g/dL Lipase 640 H (14-63) U/L Urine Protein (Negative) Urine Ketones (Negative) 03/22/21 03/22/21 03/23/21 Range/Units 15:30 20:53 04:33 WBC 12.5 H (4.50-10.00) X 10*3/uL RBC 2.75 L 2.54 L (4.10-5.20) X 10*6/uL Hgb 9.4 L D 8.7 L (12.0-15.0) g/dL Hct 26.1 L 24.5 L (37.2-46.3) % MCV (80.0-97.0) fL MCH (27.0-32.0) pg Immature Gran # (0.00-0.04) X 10*3/uL Neutrophils # 10.1 H 8.7 H (1.80-7.70) X 10*3/uL Basophils # (0.00-0.10) X 10*3/uL Sodium (135-145) mmol/L Potassium (3.5-5.1) mmol/L Carbon Dioxide (20.0-27.5) mmol/L BUN (9.0-27.0) mg/dL Creatinine (0.6-1.5) mg/dL BUN/Creatinine Ratio (12.00-20.00) Ratio Calcium (8.7-10.3) mg/dL Ionized Calcium Danelle (4.5-5.3) mg/dL Magnesium (1.6-2.3) mg/dL AST (13-35) U/L C-Reactive Protein (<1.0) mg/dL Total Protein (6.2-8.2) g/dL Albumin (3.8-4.9) g/dL Albumin/Globulin Ratio (1.60-3.17) g/dL Lipase (14-63) U/L Urine Protein Trace H (Negative) Urine Ketones Trace H (Negative) 03/23/21 Range/Units 04:33 WBC (4.50-10.00) X 10*3/uL RBC (4.10-5.20) X 10*6/uL Hgb (12.0-15.0) g/dL Hct (37.2-46.3) % MCV (80.0-97.0) fL MCH (27.0-32.0) pg Immature Gran # (0.00-0.04) X 10*3/uL Neutrophils # (1.80-7.70) X 10*3/uL Basophils # (0.00-0.10) X 10*3/uL Sodium 132 L (135-145) mmol/L Potassium 3.4 L (3.5-5.1) mmol/L Carbon Dioxide (20.0-27.5) mmol/L BUN <2 L (9.0-27.0) mg/dL Creatinine 0.49 L (0.6-1.5) mg/dL BUN/Creatinine Ratio (12.00-20.00) Ratio Calcium 7.3 L (8.7-10.3) mg/dL Ionized Calcium Danelle (4.5-5.3) mg/dL Magnesium (1.6-2.3) mg/dL AST (13-35) U/L C-Reactive Protein 14.3 H (<1.0) mg/dL Total Protein (6.2-8.2) g/dL Albumin (3.8-4.9) g/dL Albumin/Globulin Ratio (1.60-3.17) g/dL Lipase (14-63) U/L Urine Protein (Negative) Urine Ketones (Negative) Assessment and Plan (1) Pancreatitis Current Visit: Yes Status: Acute Code(s): K85.90 - ACUTE PANCREATITIS W ITHOUT NECROSIS OR INFECTION, UNSP SNOMED Code(s): 09564450 Plan: Continue clear liquids. Check CBC CMP with amylase and lipase. Following anemia closely. See orders otherwise. Appreciate surgical consult
[2021-03-23] MEDS: PIPERACILLIN-TAZOBACTAM 3.375 GM in SODIUM CHLORIDE 0.9% 100 ML IVPB SCH ×2 (08:34→16:09)
[2021-03-23] MEDS: AZITHROMYCIN 250 MG TAB PO SCH (08:43)
--- NOTE | 2021-03-23 09:18 | P.CONS ---
History of Present Illness - Reason for Consult Consult date: 03/22/21 fever and leukocytosis Requesting physician: Carl Olsen - Chief Complaint abd pain x few days - History of Present Illness History of present illness : Patient is 25-year-old female presenting to the ER on the for evaluation of left-sided abdominal pain patient symptoms started the day before presentation to the hospital patient describing the pain to be more of a sharp to at times quality intensity is almost entertained by the time he presented to hospital patient has been nauseated and episode of vomiting no diarrhea patient on presentation to the hospital was afebrile however she did spike a low-grade fever 100.03 degrees Fahrenheit after midnight today patient slightly tachycardic patient did have a normal white count on admission however is up to 15.82 today urine has been negative patient did have a CT of abdominal pelvis correlate for pancreatitis patient did have a abdominal ultrasound no gallstones or dilated duct patient was treated conservatively however with the development of a fever and white count jumping up the patient was started on Zosyn infectious disease was consulted for further management of antibiotic therapy, patient did have a history of drinking and apparently may have drank a little bit more on Thanksgiving dinner before the patient symptoms started Review of system: CONSTITUTIONAL: Positive for weakness along with the fever. EYES: No complaint. ENT: No complaint. RESPIRATORY: No complaint. CARDIOVASCULAR: No complaint. GENITOURINARY: No complaint. GASTROINTESTINAL as per history of present illness. MUSCULOSKELETAL: No complaint. INTEGUMENTARY: No complaint. PSYCHOLOGIC: No complaint. ENDOCRINE: No complaint. NEUROLOGIC: No complaint. Past medical history : Reviewed, documented below Past surgical history : Reviewed, documented below Social history: Reviewed, documented below Medications: Reviewed, as documented below EXAMINATION: Vital sigans= Reviewed and documented below GENERAL DESCRIPTION: Middle-aged female lying in bed, no distress. No tachypnea or accessory muscle of respiration use. HEENT: Shows Pallor , no scleral icterus. Oral mucous membrane is dry. NECK: Trachea central, no thyromegaly. LUNGS: Unlabored breathing. Clear to auscultation anteriorly. No wheeze or crackle. HEART: S1, S2, regular rate and rhythm. ABDOMEN: Soft, mild epigastric tenderness , guarding or rigidity EXTREMITIES: No edema of feet. SKIN: No rash, no masses palpable. NEUROLOGICAL: The patient is awake, alert, oriented x3, mood and affect normal. LABS AND RADIOLOGY: Reviewed results see below Assessment : Patient with with a low-grade fever and elevated white count is more likely related to the acute pancreatitis which could be related to alcoholism in this patient CT as well as ultrasound was negative for any gallstones or dilated duct and the patient currently do not have any other obvious focus of infection Plan: 1-agree with Zosyn to cover for the gram-negative abdominal pathogen 2-blood cultures will be followed 3-gentle IV fluid and n.p.o. status We will follow on clinical condition and cultures to further adjust medication if needed Thank you for this consultation we will follow the patient along with you Past Medical History Additional Past Medical History / Comment(s): bulemia History of Any Multi-Drug Resistant Organisms: None Reported Past Surgical History: Tonsillectomy Past Psychological History: Anxiety, Depression Smoking Status: Never smoker Past Alcohol Use History: Occasional Past Drug Use History: Marijuana Medications and Allergies Home Medications Medication Instructions Recorded Confirmed Type Cetirizine HCl [Zyrtec] 10 mg PO DAILY 03/20/21 03/20/21 History Lisdexamfetamine Dimesylate 50 mg PO DAILY 03/20/21 03/20/21 History [Vyvanse] Allergies Allergy/AdvReac Type Severity Reaction Status Date / Time No Known Allergies Allergy Verified 03/20/21 15:50 Physical Exam Vitals: Vital Signs Temp Pulse Resp BP Pulse Ox 03/22/21 08:42 98.3 F 117 H 16 99/69 96 03/22/21 01:18 100.3 F H 119 H 18 96/66 96 03/21/21 18:55 99.2 F 122 H 103/67 97 03/21/21 15:00 99.0 F 109 H 16 92/61 96 Intake and Output 03/21/21 03/22/21 03/22/21 22:59 06:59 14:59 Intake Total 118 Balance 118 Intake: Oral 118 Other: Voiding Method Toilet Toilet # Voids 1 1 Results CBC & Chem 7: 03/23/21 04:33 03/23/21 04:33 Labs: Abnormal Lab Results - Last 24 Hours (Table) 03/22/21 03/22/21 Range/Units 05:50 05:50 WBC 15.82 H (4.50-10.00) X 10*3/uL RBC 3.19 L (4.10-5.20) X 10*6/uL Hgb 11.1 L (12.0-15.0) g/dL Hct 31.2 L (37.2-46.3) % MCV 97.8 H (80.0-97.0) fL MCH 34.8 H (27.0-32.0) pg Immature Gran # 0.12 H (0.00-0.04) X 10*3/uL Neutrophils # 13.26 H (1.80-7.70) X 10*3/uL Basophils # 0.11 H (0.00-0.10) X 10*3/uL Sodium 130 L (135-145) mmol/L Carbon Dioxide 18.6 L (20.0-27.5) mmol/L BUN 2.8 L (9.0-27.0) mg/dL Creatinine 0.4 L (0.6-1.5) mg/dL BUN/Creatinine Ratio 7.00 L (12.00-20.00) Ratio Calcium 5.7 L* (8.7-10.3) mg/dL AST 51 H (13-35) U/L Total Protein 4.6 L (6.2-8.2) g/dL Albumin 2.7 L (3.8-4.9) g/dL Albumin/Globulin Ratio 1.44 L (1.60-3.17) g/dL Lipase 640 H (14-63) U/L
[2021-03-23] MEDS: ACETAMINOPHEN TAB 325 MG TAB PO PRN (13:44)
[2021-03-24] MEDS: PIPERACILLIN-TAZOBACTAM 3.375 GM in SODIUM CHLORIDE 0.9% 100 ML IVPB SCH ×2 (00:17→08:23)
[2021-03-24] MEDS: MORPHINE SULFATE 4 MG/ML SYRINGE IV PRN (01:17)
[2021-03-24 01:35] VITALS: RESP 16
[2021-03-24] MEDS: SODIUM CHLORIDE 0.9% 1,000 ML IV SCH (05:14)
--- NOTE | 2021-03-24 06:18 | PN ---
PROGRESS NOTE DATE OF SERVICE: 03/23/2021 REASON FOR FOLLOWUP: Fever and leukocytosis likely secondary to alcoholism. INTERVAL HISTORY: Patient is afebrile. The patient abdominal pain has decreased in intensity. Denies having any chest pain, shortness of breath or cough. PHYSICAL EXAMINATION: Blood pressure 113/79, pulse of 102. Temperature 98.8, she is 100% on room air. General description is a middle-aged female lying in bed in no distress. Respiratory system: Unlabored breathing, decreased intensity in breath sounds in the base, with no wheeze. Heart S1, S2. Regular rate and rhythm. Abdomen soft, no tenderness. No guarding. No rigidity. LAB: Hemoglobin 8.7, white count 10.6, creatinine 0.49. DIAGNOSTIC IMPRESSION AND PLAN: Patient with fever with elevated white count admitted to the hospital with acute pancreatitis The patient's fever responded to the Zosyn to continue. Hopefully transition to oral antibiotic once her oral intake improves. Continue supportive care. MMODL / IJN: [id number] /
[2021-03-24 07:38] VITALS: BP 118/84; PULSE 104; TEMP 98.8
[2021-03-24] MEDS: AZITHROMYCIN 250 MG TAB PO SCH (08:23)
[2021-03-24] MEDS: ACETAMINOPHEN TAB 325 MG TAB PO PRN (08:29)
[2021-03-24 09:11] LABS: HCT 22.4 % (37.2-46.3); HGB 7.3 g/dL (12.0-15.0); MCH 32.6 pg (27.0-32.0); MCHC 32.6 g/dL (32.0-37.0); Mean Platelet Volume 10.9 fL (9.5-12.2); Platelet Count 190 X 10*3/uL (140-440); RBC 2.24 X 10*6/uL (4.10-5.20); RDW 12.6 % (11.5-14.5); WBC 7.87 X 10*3/uL (4.50-10.00)
[2021-03-24 12:50] LABS: Amylase 60 U/L (23-121)
[2021-03-24 13:36] LABS: ALT 16 U/L (8-44); AST 30 U/L (13-35); African American GFR (CKD) 173.4 (60.0-200.0); Albumin 2.9 g/dL (3.8-4.9); Albumin/Globulin Ratio 1.38 (1.60-3.17); Alkaline Phosphatase 59 U/L (41-126); Blood Urea Nitrogen <2 mg/dL (9.0-27.0); Carbon Dioxide 24.5 mmol/L (20.0-27.5); Chloride 102 mmol/L (96-109); Globulin 2.1 g/dL (1.6-3.3); Glucose 82 mg/dL (70-110); Lipase 240 U/L (14-63); Non-African American GFR(CKD) 149.7 (60.0-200.0); Potassium 3.1 mmol/L (3.5-5.5); Sodium 138 mmol/L (135-145)
--- NOTE | 2021-03-25 15:07 | P.DS ---
Providers Date of admission: 03/23/21 09:37 Attending physician: Ernesto Morgan Consults: 03/20/21 16:53 Consult Physician Routine Consulting Provider: Attila Zavaleta Consult Reason/Comments: pancreatitis Do you want consulting provider notified?: Yes 03/22/21 13:27 Consult Physician Routine Consulting Provider: Paxton Gtz Consult Reason/Comments: Leukocytosis/ lactic acidosis Do you want consulting provider notified?: Yes Primary care physician: Ernesto Morgan - Discharge Diagnosis(es) (1) Pancreatitis Status: Acute Hospital Course: This is a discharge summary on a 25-year-old white female who was an essentially admitted for alcoholic pancreatitis. The patient was stabilized with nothing by mouth with IV hydration. Surgery and infectious disease was counseled to secondary to lactic acid and her pancreatitis. The patient was stabilized. Tolerating low-fat diet with minimal enzymatic elevation of amylase lipase and no new pain. We had a long discussion regarding binge drinking and she has an underlying history of binge eating disorder as well. Patient understood and will be discharged in stable condition to follow-up with me in about 3-4 days. She also has significant anemia which will need to be evaluated as an outpatient if it does not stabilize. However, I do suspect this is related to infection with hepatitis Patient Condition at Discharge: Good Plan - Discharge Summary Discharge Rx Participant: No New Discharge Prescriptions: New Azithromycin [Zithromax] 250 mg PO DAILY #3 tab Continue Lisdexamfetamine Dimesylate [Vyvanse] 50 mg PO DAILY Cetirizine HCl [Zyrtec] 10 mg PO DAILY Discharge Medication List Cetirizine HCl [Zyrtec] 10 mg PO DAILY 03/20/21 [History] Lisdexamfetamine Dimesylate [Vyvanse] 50 mg PO DAILY 03/20/21 [History] Azithromycin [Zithromax] 250 mg PO DAILY #3 tab 03/24/21 [Rx] Follow up Appointment(s)/Referral(s): Ernesto Morgan MD [Primary Care Provider] - 1-2 days Patient Instructions/Handouts: Pancreatitis (DC) Activity/Diet/Wound Care/Special Instructions: activity as tolerated heart healthy diet Lab draw at Dr Bauman office in 2 days Discharge Disposition: HOME SELF-CARE
== END 2021-03-24 13:11 | disposition home or self-care (01) | DRG 438 ==
LOC: EC 13:13 → 6NMEDSUR 16:50 → 6PED 03-22 08:36 → OBSVTOIN 03-23 09:37 → 6NMEDSUR 03-23 14:20
PROVIDERS: ADMIT Family Medicine; ATTEND Family Medicine
DX: K85.20 Alcohol induced acute pancreatitis without necrosis or infection (principal); J18.9 Pneumonia, unspecified organism; K35.80 Unspecified acute appendicitis; E87.2 Acidosis; Z20.822 Contact with and (suspected) exposure to COVID-19; K70.10 Alcoholic hepatitis without ascites; D64.9 Anemia, unspecified; R00.0 Tachycardia, unspecified; J30.2 Other seasonal allergic rhinitis; F41.9 Anxiety disorder, unspecified; F32.A Depression, unspecified; F10.20 Alcohol dependence, uncomplicated; E83.51 Hypocalcemia; E83.42 Hypomagnesemia; R74.01 Elevation of levels of liver transaminase levels; Z86.59 Personal history of other mental and behavioral disorders
CPT/HCPCS: 36415; 71046; 74176; 76705; 80048; 80053; 80076; 81003; 82150; 82330; 83605; 83690; 83735; 84145; 84702; 85025; 85027; 86140; 86850; 86900; 86901; 87040; 87635; 96374; 96375; 99285